=== PATIENT | male | born 1955 | race Caucasian/White ===

== ENCOUNTER 2017-08-11 08:21 | Day surgery (SDC) | payer OTHER ==
[~2017-08-11] VITALS: Ht 175.3 cm; Wt 81.8 kg
[~2017-08-11 08:21] MED LIST: ASPI325 PO; CLOP75 PO; DOCU100 PO; IBUP400 PO; LISI20 PO; MELO7.5 PO; METO25ER PO; OXYC5
[2017-08-11] MEDS ORDERED: MELO7.5 (09:10)
== END 2017-08-11 15:15 | disposition home or self-care (01) ==
LOC: ORSCSDS 08:21
PROVIDERS: Orthopaedic Surgery
PROC: 0LQ24ZZ Repair Left Shoulder Tendon, Percutaneous Endoscopic Approach (ICD-10-PCS; principal; 2017-08-11 09:45)
DX: S46.002A Unspecified injury of muscle(s) and tendon(s) of the rotator cuff of left shoulder, initial encounter (principal); I10 Essential (primary) hypertension; G62.9 Polyneuropathy, unspecified; Z86.73 Personal history of transient ischemic attack (TIA), and cerebral infarction without residual deficits; Z79.899 Other long term (current) drug therapy
CPT/HCPCS: C1713; J0171; J0690; J1100; J1885; J2250; J2370; J2405; J2710; J3010; J7120